=== PATIENT | female | born 1950 | race Caucasian/White ===

== ENCOUNTER 2019-09-10 05:24 | Day surgery (SDC) | payer MEDICARE, SELFPAY ==
--- NOTE | 2019-08-22 09:53 | HP_ITS ---
Intake Intake Visit Reasons: Discuss EGD DX Acid Reflux [facility] Medical History (Updated 08/22/19 @ 09:51 by Yazan Leonard MD) History of benign gastric tumor (Acute) Hiatal hernia (Acute) GERD (gastroesophageal reflux disease) (Acute) HPI HPI HPI: SAY BIGGS, is a 69 F who presents to the office today for HPI HPI Surgical H&P: Yes HPI: SAY BIGGS, is a 69 F who presents to the office today for surgical consultation regarding escalating reflux symptoms. The patient is referred by Dr. Steele a written copy of my surgical consult and recommendations will return to him. It is of note that previously August 25, 2015 I did a upper endoscopy for her. Few gastric polyps were identified. There appeared to be a tumor in the cardia of the stomach. I am suspicious that it might be a gist tumor. At that time the patient was having discomfort in the left lower quadrant. She carries a history of breast cancer being treated elsewhere. I referred her that and subsequently November 30, 2015 he performed a combined laparoscopic robotic resection of the gastric submucosal mass with intraoperative endoscopy guidance. 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 The patient has not had an upper endoscopy since that time. She is having escalating reflux symptoms. Exam Const General: cooperative, healthy appearing, comfortable, no acute distress Nutritional Appearance: average body habitus Orientation: alert, awake, oriented x3 HENMT Head: normal to inspection Resp Effort & Inspection: normal respiratory effort Auscultation: clear to auscultation bilaterally Cardio Rate: regular rate Rhythm: regular rhythm GI Palpation: soft, no hepatosplenomegaly Auscultation: normal bowel sounds Skin General: no rashes or lesions noted Neuro Cognition: normal cognition Extrem General: no calf tenderness bilaterally Psych Affect: normal affect Assessment & Plan Problems 1. Gastroesophageal reflux disease, esophagitis presence not specified K21.9 2. Hiatal hernia K44.9 3. History of benign gastric tumor Z86.018 Plan 69-year-old female. 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 She is having escalating GERD symptoms. She had previous evidence of a 2 cm hiatal hernia. I am recommending to her a esophagogastroduodenoscopy with anticipated biopsy of indicated possible polypectomy. She is aware of the technique, benefits, risks, alternatives. She has had an opportunity to ask and have questions answered. We will schedule procedure at her discretion. I appreciate the opportunity of continue to assist with her surgical care. CC: Dr. Julius Leonard M.D., F.A.C.S. 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 There are no clinical changes since date of exam.
[2019-08-22 09:56] VITALS: BMI 22.4
--- NOTE | 2019-09-09 06:30 | GASB_PTH ---
PATIENT: SAY BIGGS LOC: [facility] U#:[id number] AGE/SX: 69/F ROOM: RE09/10/[address]: Dr. Yazan Leonard MD : 1950 BED: DIS: 09/10/2019 SPEC #: [id number] RECD: 09/09/19 07:10 STATUS: ELHAM WILLY #: [id number] ALESSIA: 09/09/19 06:[address]: Yazan Leonard DEPT: SURGICAL PATHOLOGY RECD BY: Irish Melton ENTERED: 09/10/19 11:00 SP TYPE: Gastric Bx OTHR DR: Dr. Julius Steele MD Tissues: A - Duodenum, NOS B - Gastric mucous membrane C - Gastric mucous membrane D - Gastric mucous membrane E - Esophagus, NOS Procedures: Surgery Specimen Level IV HEADER OPERATION: EGD MOD PRE-OP DIAGNOSIS: GERD, hiatal hernia, history benign gastric tumor TISSUE SUBMITTED: A. Duodenum biopsy, B. Antrum biopsy, C. Fundus biopsy, D. Gastric polyp biopsy, E. Distal esophagus biopsy MICROSCOPIC DIAGNOSIS A. Duodenum, biopsy: No pathologic change. B. Gastric antrum, biopsy: Chronic gastritis. C. Gastric fundus, biopsy: Mild chronic inflammation. D. Gastric polyp, biopsy: Consistent with fundic gland polyp. E. Distal esophagus, biopsy: Consistent with reflux esophagitis. Gastroesophageal junction mucosa with chronic inflammation. 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 No evidence of dysplasia. AM:rhona 09/11/19 COMMENT Alcian blue/PAS stain with matched control supports the above diagnosis. Immunohistochemistry ([id number]) supports the above diagnosis. MICROSCOPIC DESCRIPTION Slides are reviewed. GROSS DESCRIPTION A. Received is one container labeled with the patient name and designated duodenum biopsy. The specimen consists of one irregular fragment of light mancia soft tissue that measures 0.3 x 0.3 x 0.1 cm. The specimen is totally submitted in one cassette. B. Received is one container labeled with the patient name and designated antrum biopsy. The specimen consists of one irregular fragment of light mancia soft tissue that measures 0.6 x 0.2 x 0.1 cm. The specimen is totally submitted in one cassette. C. Received is one container labeled with the patient name and designated fundus biopsy. The specimen consists of one irregular fragment of light mancia soft tissue that measures 0.6 x 0.2 x 0.1 cm. The specimen is totally submitted in one cassette. D. Received is one container labeled with the patient name and designated gastric polyp. The specimen consists of one irregular fragment of light mancia soft tissue that measures 0.2 x 0.2 x 0.1 cm. The specimen is totally submitted in one cassette. E. Received is one container labeled with the patient name and designated distal esophagus biopsy. The specimen consists of two irregular fragments of light mancia soft tissue that in aggregate measure 0.5 x 0.3 x 0.1 cm. The specimen is totally submitted in one cassette. AM:rhona 09/10/19 TC:3 CPT: 00966 x5, 78402 x1
[2019-09-10] VITALS (10 sets, daily range): BP systolic 106–157; BP diastolic 54–90; PULSE 51–63; RESP 16–18; TEMP 36.6; O2SAT 94–100; BMI 22.7
--- NOTE | 2019-09-10 | IMM_PTH ---
PATIENT: SAY BIGGS LOC: EN U#:[id number] AGE/SX: 69/F ROOM: RE09/10/[address]: Dr. Yazan Leonard MD : 1950 BED: DIS: 09/10/2019 SPEC #: [id number] RECD: 09/10/19 14:55 STATUS: ELHAM REAbhishek #: [id number] ALESSIA: 09/10/19 00:[address]: Yazan Leonard DEPT: IMMUNOHISTOCHEMISTRY RECD BY: Irish Melton ENTERED: 09/10/19 14:56 SP TYPE: IMMUNO OTHR DR: Dr. Julius Steele MD Tissues: B - Gastric mucous membrane E - Esophagus, NOS Procedures: H Pylori (initial) P53 (initial) KI-67 (add) CDX2 (add) PHYSICIAN & INSTITUTION [place] [id number] SPECIMEN INFORMATION: Tissue Source: B - Antrum biopsy, E - Distal esophagus biopsy: Clinical Info: GERD, hiatal hernia, history benign gastric tumor Specimen Number: [id number] B & E CPT code: 39508 x2, 61669 x2 METHODOLOGY: Deparaffinized sections of prefer/formalin-fixed tissue or PAP/DQ stained slides are incubated with monoclonal/polyclonal antibodies/oligonucleotide probes. Localization is made via biotin free immunoperoxidase method. Appropriate controls are performed and reacted as expected. Results on target cell population are indicated in the following table: RESULTS: ANTIBODY / CLONE RESULT Block B H Pylori (polyclonal) negative Block E P53 (DO-7) negative Ki-67 (30-9) positive CDX2 ([id number]) positive These tests were developed and their performance characteristics determined by [facility]. They may not have been cleared or approved by the U.S. Food and Drug Administration. The FDA has determined that such clearance or approval is not necessary. The above immunohistochemical/dualISH markers are ordered and reviewed by the Pathologist. INTERPRETATION: B. Gastric antrum, biopsy: Negative for Helicobacter pylori organisms. E. Distal esophagus, biopsy: No evidence of dysplasia. AM:kimber 09/12/19
[2019-09-10] MEDS: Lactated Ringers 1,000 ML 100 ML IV (06:14)
--- NOTE | 2019-09-10 06:50 | OP.EGD_ITS ---
Patient Name: Kimberly Holcomb Procedure Date: 09/10/2019 6:12 AM Date of : 1950 Age: 69 Procedure: Upper GI endoscopy Indications: Suspected esophageal reflux Providers: Yazan Leonard MD Referring MD: Julius Steele Medicines: Midazolam 3 mg IV, Meperidine 75 mg IV Complications: No immediate complications. Procedure: Pre-Anesthesia Assessment: - Prior to the procedure, a History and Physical was performed, and patient medications and allergies were reviewed. The patient's tolerance of previous anesthesia was also reviewed. The risks and benefits of the procedure and the sedation options and risks were discussed with the patient. All questions were answered, and informed consent was obtained. Prior Anticoagulants: The patient has taken no previous anticoagulant or antiplatelet agents. ASA Grade Assessment: II - A patient with mild systemic disease. After reviewing the risks and benefits, the patient was deemed in satisfactory condition to undergo the procedure. After obtaining informed consent, the endoscope was passed under direct vision. Throughout the procedure, the patient's blood pressure, pulse, and oxygen saturations were monitored continuously. The gastroscope was introduced through the mouth, and advanced to the second part of duodenum. The upper GI endoscopy was accomplished without difficulty. The patient tolerated the procedure well. Moderate Sedation: Moderate (conscious) sedation was personally administered by the endoscopist. The following parameters were monitored: oxygen saturation, heart rate, blood pressure, and response to care. Total physician intraservice time was 15 minutes. Scope In: 6:33:37 AM Scope Out: 6:41:38 AM Total Procedure Duration Time 0 hours 8 minutes 1 second Findings: LA Grade A (one or more mucosal breaks less than 5 mm, not extending between tops of 2 mucosal folds) esophagitis with no bleeding was found 40 cm from the incisors. Biopsies were taken with a cold forceps for histology. A small hiatal hernia was present. The Z-line was irregular and was found 40 cm from the incisors. A few sessile polyps with no bleeding and no stigmata of recent bleeding were found in the gastric fundus. The polyp was removed with a cold biopsy forceps. Resection and retrieval were complete. Diffuse mildly erythematous mucosa without bleeding was found in the gastric antrum. Biopsies were taken with a cold forceps for histology. Localized mildly erythematous mucosa without bleeding was found in the gastric fundus. Biopsies were taken with a cold forceps for histology. Diffuse mildly erythematous mucosa without active bleeding and with no stigmata of bleeding was found in the duodenal bulb. Biopsies were taken with a cold forceps for histology. Impression: - LA Grade A reflux esophagitis. Biopsied. - Small hiatal hernia. - Z-line irregular, 40 cm from the incisors. - A few gastric polyps. Resected and retrieved. - Erythematous mucosa in the antrum. Biopsied. - Erythematous mucosa in the gastric fundus. Biopsied. - Erythematous duodenopathy. Biopsied. Recommendation: - Discharge patient to home. - Resume previous diet. - Continue present medications. - Return to my office in 1 week. - Use Prilosec (omeprazole) 40 mg PO daily. Procedure Code(s): --- Professional --- 69038, Esophagogastroduodenoscopy, flexible, transoral; with biopsy, single or multiple 52941, 59, Moderate sedation services provided by the same physician or other qualified health care management coordinator performing the diagnostic or therapeutic service that the sedation supports, requiring the presence of an independent trained observer to assist in the monitoring of the patient's level of consciousness and physiological status; initial 15 minutes of intraservice time, patient age 5 years or older Diagnosis Code(s): --- Professional --- K21.0, Gastro-esophageal reflux disease with esophagitis K44.9, Diaphragmatic hernia without obstruction or gangrene K22.8, Other specified diseases of esophagus K31.7, Polyp of stomach and duodenum K31.89, Other diseases of stomach and duodenum CPT copyright 2017 [employer]. All rights reserved. The codes documented in this report are preliminary and upon communications maintainer review may be revised to meet current compliance requirements. Yazan Leonard MD 09/10/2019 6:49:49 AM This report has been signed electronically. Number of Addenda: 0 Note Initiated On: 09/10/2019 6:12 AM
== END 2019-09-10 07:47 | disposition home or self-care (01) ==
LOC: EN 05:25 → AC 05:26
PROVIDERS: Family Provider Family Medicine; PCP Family Medicine; Referring Provider Family Medicine; Visit Provider Surgery
PROC: (CPT 43239; principal; 2019-09-10 06:25)
DX: K29.50 Unspecified chronic gastritis without bleeding (principal); K44.9 Diaphragmatic hernia without obstruction or gangrene; K21.0 Gastro-esophageal reflux disease with esophagitis; K31.7 Polyp of stomach and duodenum; K22.8 Other specified diseases of esophagus; Z85.3 Personal history of malignant neoplasm of breast
CPT/HCPCS: 43239; 88305; 88341; 88342; 99152; 99153; J7120

== ENCOUNTER 2022-05-25 12:00 | Emergency (ER) | payer MEDICARE, SELFPAY ==
[2022-05-25 12:01] VITALS: BP 134/107; PULSE 56; RESP 18; TEMP 36.3; O2SAT 96; BMI 24.2
--- NOTE | 2022-05-25 12:38 | EKG12_ITS ---
Test Reason : CHEST DISCOMFORT Blood Pressure : / mmHG Vent. Rate : 056 BPM Atrial Rate : 056 BPM P-R Int : 172 ms QRS Dur : 086 ms QT Int : 434 ms P-R-T Axes : 077 049 034 degrees QTc Int : 418 ms Sinus bradycardia Otherwise normal ECG Confirmed by YADIEL ALAS, LILA ([id number]), clinical editor JUNIOR TONG ([id number]) on 05/26/2022 1:26:51 PM Referred By: CARTER Confirmed By:SKYLAR COTTO MD
--- NOTE | 2022-05-25 12:45 | EX.ED.DYSGE1 ---
HPI History of Present Illness Chief Complaint: Allergic Reaction Informant: patient Narrative Narrative: 8-year-old female states that earlier this morning she was bit on the right hand by a wasp. She states that she was stung approximately 1 month ago by unknown organism. She states that as she hike she became itchy and her right hand began to swell and become red. She went to a local [employer] store to buy some Benadryl and while in line and developed a burning central chest pain reminiscent of her GERD. She notes that she has a history of Jacome's esophagus, GERD, as well as a hiatal hernia. She also notes itching of her abdomen. EMS was called and they administered aspirin as well as Benadryl. Patient denies any dyspnea or throat swelling. No change in voice. 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 Breast cancer GERD (gastroesophageal reflux disease) GERD (gastroesophageal reflux disease) Hiatal hernia High cholesterol History of benign gastric tumor Home Medications cholecalciferol (vitamin D3) 50 mcg (2,000 unit) capsule 2,000 unit PO DAILY 08/22/19 [History Last Taken Unknown] rosuvastatin 5 mg tablet 5 mg PO DAILY 08/22/19 [History Last Taken Unknown] omeprazole magnesium 20 mg tablet,delayed release (Prilosec OTC) 20 mg PO DAILY #30 tabs 07/24/20 [Rx Last Taken Unknown] artifi.tears(hypromellose)(PF) 0.3 % eye drops 1 drp ophthalmic (eye) 4-8XD PRN 05/23/22 [History Last Taken Unknown] multivitamin 1 tab PO DAILY 05/23/22 [History Last Taken Unknown] epinephrine 0.3 mg/0.3 mL injection, auto-injector (EpiPen) 0.3 mg (0.3 mL) IM X1 PRN anaphylaxis #2 ea 05/25/22 [Rx Last Taken Unknown] prednisone 20 mg tablet 60 mg PO DAILY #15 TABLETS 05/25/22 [Rx Last Taken Unknown] Allergy/AdvReac Type Severity Reaction Status Date / Time Sulfa (Sulfonamide Allergy Mild Unknown Verified 05/25/22 12:05 Antibiotics) cefadroxil [From [facility]] Allergy Rash Verified 05/25/22 12:05 Family History Mother Breast cancer CVA (cerebral vascular accident) Sister Breast cancer Surgical History History of breast biopsy History of cataract surgery S/P gastric surgery S/P left mastectomy Status post left breast lumpectomy Social History household members: spouse current occupational status: retired Smoking Status: Never smoker alcohol intake: never substance use type: does not use what type of physical activity do you participate in: walking and other details: hiking frequency: 3-4 times per week seatbelt use: always do you feel safe at home: Yes additional social history: - [facility] ED Constitutional Constitutional ED: Denies chills or weight loss Eyes Eyes: Denies change in vision or diplopia ENT ENT ED: Denies ear pain, rhinorrhea or sore throat Cardiovascular Cardiovascular: Reports chest pain; Denies orthopnea, palpitations or racing heartbeat Respiratory/Chest Respiratory/Chest: Denies cough, dyspnea or orthopnea Gastrointestinal Gastrointestinal: Denies abdominal pain, diarrhea, nausea or vomiting Genitourinary Genitourinary ED: Denies dysuria, hematuria or urinary frequency Musculoskeletal Musculoskeletal: Denies arthralgias or myalgias Integumentary Reports rash; Denies abscess Neurologic Neurologic: Denies headache(s) or weakness Psychiatric Psychiatric: Denies anxiety, depression, suicidal ideation or suicidal thoughts Endocrine Endocrinology: Denies polydipsia, polyphagia or polyuria Allergic/Immunologic Allergic/Immunologic ED: Denies mouth swelling, tongue swelling or urticaria EXAM Physical Exam Narrative Exam Narrative: Patient awake alert sitting comfortably in the bed. No acute distress. Const Vital Signs: 05/25/22 12:01 05/25/22 13:41 Temperature 97.4 F L Temperature Source Temporal Pulse Rate 56 L 52 L Respiratory Rate 18 12 Blood Pressure 134/107 H 134/63 H Blood Pressure Mean 116 86 Pulse Ox 96 100 Oxygen Delivery Method Room Air Room Air Positive well nourished and well developed General Appearance ED: well developed HEENT Reports normocephalic, head/scalp atraumatic and moist mucous membranes Eyes PERRL and EOMs intact bilaterally Neck no lymphadenopathy, supple and no JVD Resp normal respiratory effort and clear to auscultation bilaterally Cardio regular rate, regular rhythm and no murmurs GI normal to inspection, nondistended, normoactive bowel sounds and non-tender Palpation: soft Back/Spine no CVA tenderness and normal ROM Extremity Extremity Narrative: The right hand and wrist is erythematous with swelling. Neurovascularly intact. Neuro oriented x3 and CN's II-XII intact bilaterally Sensorium / Orientation: alert Motor Exam: strength 5/5 throughout Psych mental status grossly normal Mood & Affect: Negative for depressed or tearful Skin no wounds Skin Narrative: The patient has hives on her torso. MDM MDM MDM Narrative Medical decision making narrative: Patient received Benadryl by EMS. We administered Solu-Medrol and Pepcid. Her EKG is a sinus bradycardia. Troponin is negative. Patient on repeat examination feels improved. No further chest pain. Her hives have resolved. She will be discharged home with prescription for prednisone and EpiPen. Would recommend Pepcid and Benadryl as needed. Lab Data Attestation: I reviewed the patient's lab results. Labs: Laboratory Results - last 24 hr 05/25/22 05/25/22 12:45 12:45 WBC 7.3 RBC 4.33 Hgb 12.3 Hct 36.8 L MCV 85.0 MCH 28.4 MCHC 33.4 RDW Std Deviation 49.7 H RDW Coeff of Abdirashid 15.8 H Plt Count 182 MPV 10.1 Immature Gran % (Auto) 0.100 Neut % (Auto) 82.2 H Lymph % (Auto) 11.9 L [place] % (Auto) 5.3 Eos % (Auto) 0.4 Baso % (Auto) 0.1 Absolute Neuts (auto) 6.0 Absolute Lymphs (auto) 0.87 Nucleated RBC % 0 Sodium 142 Potassium 3.9 Chloride 111 H Carbon Dioxide 26.0 Anion Gap 5 BUN 17 Creatinine 0.72 Estim Creat Clear Calc 50.91 Est GFR (MDRD) Af Amer 102 Est GFR (MDRD) Non-Af 84 BUN/Creatinine Ratio 23.5 H Glucose 93 Calcium 8.6 Troponin I High Sens 7 EKG Initial EKG: Attestation: I personally reviewed and interpreted this EKG as follows: Comments: Sinus bradycardia with a ventricular rate of 56 bpm Discharge Plan Triage Chief Complaint: Allergic Reaction ED Provider: Juan Francisco Graham Dx/Rx/DC Orders Clinical Impression: Acute allergic reaction, GERD (gastroesophageal reflux disease) Instructions: ED BEE STING General Allergic Rxn Prescriptions: New prednisone 20 mg tablet 60 mg PO DAILY Qty: 15 0RF epinephrine [EpiPen] 0.3 mg/0.3 mL auto-injector 0.3 mg IM X1 PRN (Reason: anaphylaxis) Qty: 2 0RF No Action rosuvastatin 5 mg tablet 5 mg PO DAILY cholecalciferol (vitamin D3) 2,000 unit capsule 2,000 unit PO DAILY multivitamin Tablet 1 tab PO DAILY artifi.tears(hypromellose)(PF) 0.3 % drops 1 drp ophthalmic (eye) 4-8XD PRN omeprazole magnesium [Prilosec OTC] 20 mg tablet,delayed release (DR/EC) 20 mg PO DAILY Qty: 30 0RF Primary Care Provider: Julius Steele Referrals: Julius Steele MD [Primary Care Provider] - As Needed Disposition Disposition: Home, Self Care
[2022-05-25] MEDS: MethylPREDNISolone 125 MG/2 ML Vial IV (12:51)
[2022-05-25] MEDS: Famotidine 20 MG Tablet 40 MG PO (12:51)
[2022-05-25 12:52] LABS: Absolute Lymphocyte Count 0.87 X10^3/uL (0.83-4.51); Basophil# 0.01 X10^3/uL; Basophil% 0.1 % (0-1); Eosinophil# 0.03 X10^3/uL; Eosinophils% 0.4 % (0-5); Hematocrit 36.8 % (37-47); Hemoglobin 12.3 g/dL (12.0-15.0); Lymphocyte # 0.87 X10^3/ul (0.83-4.51); Lymphocyte % 11.9 % (19-41); Mean Corp Hgb Conc 33.4 g/dL (32-36); Mean Corpuscular Hgb 28.4 pg (27.0-32.0); Mean Platelet Vol. 10.1 fl (6.2-12.0); Monocyte# 0.39 X10^3/uL; Monocyte% 5.3 % (0-10); NRBC Flagged by Analyzer 0 % (0-5); Neutrophil # 6.01 X10^3/uL (2.7-7.7); Neutrophil % 82.2 % (47-70); Platelet Count 182 K/mm3 (150-450); RBC Distribution Width CV 15.8 % (11.6-14.6); RBC Distribution Width SD 49.7 fl (35.1-43.9); Red Blood Count 4.33 M/mm3 (4.2-5.4); White Blood Count 7.3 K/mm3 (4.4-11.0)
[2022-05-25 13:09] LABS: Anion Gap 5 (5-15); BUN 17 mg/dL (7-18); BUN/Creat Ratio 23.5 RATIO (10-20); Calcium,Total 8.6 mg/dL (8.5-10.1); Chloride 111 mmol/L (98-107); Creatinine, Serum 0.72 mg/dL (0.55-1.02); EST Glomerular Filtration Rate 84 mL/min (>60); Est Glom Filt Rate - Afr Amer 102 mL/min (>60); Estimated Creatinine Clearance 50.91 ml/min; Glucose 93 mg/dL (74-106); Potassium 3.9 mmol/L (3.5-5.1); Sodium Level 142 mmol/L (136-145); Troponin-I HS 7 pg/mL (3.0-54.0)
[2022-05-25 13:41] VITALS: BP 134/63; PULSE 52; RESP 12; O2SAT 100
== END 2022-05-25 14:32 | disposition home or self-care (01) ==
PROVIDERS: Emergency Provider Emergency Medicine; PCP Family Medicine; Visit Provider Emergency Medicine
DX: T78.40XA Allergy, unspecified, initial encounter (principal); K21.9 Gastro-esophageal reflux disease without esophagitis; X58.XXXA Exposure to other specified factors, initial encounter
CPT/HCPCS: 80048; 84484; 85025; 93005; 96374; 99285; A4216

== ENCOUNTER → 2022-11-30 | Outpatient (CLI) | payer MEDICARE, SELFPAY ==
--- NOTE | 2022-11-30 14:10 | ECHOD_ITS ---
Reason For Study: PALPITATIONS Procedure This was a 2D Doppler, Color Flow transthoracic echocardiogram. Myocardial strain analysis was performed in this exam to aid in the assessment of cardiac function. Exam performed in department. Left Ventricle Normal LV size. Left ventricular systolic function is normal. The estimated ejection fraction is 60 %. No regional wall motion abnormalities noted. Right Ventricle Normal RV size. Normal systolic function. Atria Normal left atrium. Normal right atrium. Mitral Valve Normal mitral valve. Tricuspid Valve Normal tricuspid valve. Aortic Valve Trisinus/trileaflet aortic valve. Pulmonic Valve Normal pulmonic valve. Great Vessels Normal aortic root. The pulmonary artery is normal size. Normal inferior vena cava. Pericardium/Pleural No pericardial effusion. MMode/2D Measurements & Calculations LVIDd: 4.5 cm IVSd: 1.0 cm LAV(MOD-sp4): 42.4 ml LVIDs: 3.5 cm LVPWd: 0.74 cm RVDd: 3.5 cm FS: 22.3 % LVAd ap4: 27.3 cm2 SV(MOD-sp4): 54.1 ml SV(sp4-el): 56.4 ml LVLd ap4: 7.6 cm EDV(MOD-sp4): 80.6 ml EDV(sp4-el): 83.8 ml LVAs ap4: 13.7 cm2 LVLs ap4: 5.8 cm ESV(MOD-sp4): 26.5 ml ESV(sp4-el): 27.4 ml EF(MOD-sp4): 67.2 % EF(sp4-el): 67.3 % LA A4 area: 15.5 cm2 LA dimension(2D): 3.7 cm RA A4 area: 14.5 cm2 Time Measurements MV dec time: 0.19 sec Doppler Measurements & Calculations MV E max ovidio: 70.7 cm/sec MV V2 max: 78.7 cm/sec MV A max ovidio: 58.2 cm/sec MV max P.5 mmHg MV dec slope: 371.4 cm/sec2 MV E/A: 1.2 MV V2 mean: 48.8 cm/sec MV mean P.1 mmHg MV V2 VTI: 31.7 cm Ao V2 max: 128.9 cm/sec LV V1 max: 100.1 cm/sec PA V2 max: 84.0 cm/sec Ao max P.7 mmHg LV V1 max P.0 mmHg PA V2 mean: 58.7 cm/sec Ao V2 mean: 88.3 cm/sec LV V1 mean P.2 mmHg Ao mean P.6 mmHg LV V1 mean: 69.0 cm/sec Ao V2 VTI: 34.5 cm LV V1 VTI: 26.7 cm AV (velocity ratio): 0.77 ECHO/Echo Complete Interpretation Summary Normal LV size. Left ventricular systolic function is normal. The estimated ejection fraction is 60 %. The global longitudinal strain is normal. The global longitudinal strain = -20. 9 % (normal). Structurally normal valves. Ordering Physician: Julius Steele Referring Physician: Julius Steele Performed By: Samantah Hardy RCS
== END | disposition home or self-care (01) ==
LOC: CVS 14:07
PROVIDERS: PCP Family Medicine; Visit Provider Family Medicine
DX: R00.2 Palpitations (principal)
CPT/HCPCS: 93306

== ENCOUNTER → 2023-06-29 | Outpatient (CLI) | payer MEDICARE, SELFPAY ==
--- NOTE | 2023-06-29 13:00 | MRI_ITS ---
STUDY: MRI ORBITS WITH AND WITHOUT CONTRAST REASON FOR EXAM: Female, 73 years old. EXOPHTHALMOS -- 0RBITS, Lt eye bulges out further that Rt. Lt eye is cloudy, LT eye has some pain and more light sensitive, cataract surgery 2020 TECHNIQUE: Standardized fat and water weighted pulse sequences were obtained in all 3 orthogonal planes, pre-and post contrast administration. Clariscan 13ml was administered for the contrast portion of the examination. COMPARISON: None. FINDINGS: There is a globular appearance to both optic globes demonstrating exophthalmos slightly worse on the left. There are postsurgical changes status post bilateral cataract extraction.. Normal bilateral optic nerve sheath complexes and optic nerves. Normal bilateral intraconal and extraconal spaces. Normal bilateral extraocular muscles. Normal optic chiasm and post-chiasmatic tracts. Normal sella turcica, pituitary gland, infundibular stalk, and hypothalamus. Normal bilateral cavernous sinuses. Normal tectal plate and pineal gland. Normal flow voids within the major intracranial circulation suggesting patency by spin echo criteria. Normal size of the ventricles and extra-axial spaces for the patient''s age. Normal white matter tracts of the supratentorial brain. Normal bilateral basal ganglia. Normal thalami. There is no extra-axial fluid accumulation. Normal midbrain, kurt and medulla. Normal cerebellum. Normal basal cisterns. MRI/Orbit Face Neck W/WO Contrast IMPRESSION: Nonspecific exophthalmos status post bilateral cataract extraction. No focal intraorbital masses. Other findings as above Electronically Signed: Juan Bolivar MD at 20:47 EDT ,
--- NOTE | 2023-06-29 14:27 | RAD_ITS ---
INDICATION: PAIN -- -- INCREASING RT SHOULDER PAIN, NKI, DIFFICULTY RAISING ARM, FEELS POPPING AN CRACKING EXAMINATION/TECHNIQUE: X-RAY - RIGHT XR Shoulder 4 VIEWS COMPARISON: FINDINGS: SOFT TISSUES: No soft tissue swelling or gas. No radiopaque foreign body. BONES/JOINTS: No acute fracture or subluxation.. Normal alignment. Preservation of the joint space.. No sclerotic or destructive changes observed. RAD/Shoulder min 2 Views IMPRESSION: Negative. Electronically Signed: Juan Manuel Marquez DO at 16:28 EDT ,
== END | disposition home or self-care (01) ==
LOC: MRI 12:39
PROVIDERS: PCP Family Medicine; Referring Provider Family Medicine; Visit Provider Family Medicine
DX: M25.511 Pain in right shoulder (principal); H05.20 Unspecified exophthalmos
CPT/HCPCS: 70543; 73030; A9575

== ENCOUNTER → 2024-05-27 | Outpatient (CLI) | payer MEDICARE, SELFPAY ==
[2024-05-27 12:15] LABS: Absolute Lymphocyte Count 1.05 X10^3/uL (0.83-4.51); Absolute Neutrophil Count 2.5 X10^3/uL (2.0-7.7); Basophil# 0.03 X10^3/uL; Basophil% 0.7 % (0-1); Eosinophil# 0.09 X10^3/uL; Eosinophils% 2.2 % (0-5); Hematocrit 41.3 % (37-47); Hemoglobin 13.2 g/dL (12.0-15.0); Lymphocyte # 1.05 X10^3/ul (0.83-4.51); Lymphocyte % 25.6 % (19-41); Mean Corpuscular Hgb 29.7 pg (27.0-32.0); Mean Platelet Vol. 10.8 fl (6.2-12.0); Monocyte# 0.41 X10^3/uL; NRBC Flagged by Analyzer 0 % (0-5); Neutrophil # 2.51 X10^3/uL (2.7-7.7); Neutrophil % 61.3 % (47-70); Platelet Count 221 K/mm3 (150-450); RBC Distribution Width CV 13.5 % (11.6-14.6); RBC Distribution Width SD 46.5 fl (35.1-43.9); Red Blood Count 4.44 M/mm3 (4.2-5.4); White Blood Count 4.1 K/mm3 (4.4-11.0)
[2024-05-27 12:34] LABS: Vitamin D,25 Hydroxy 44.9 ng/mL
[2024-05-27 13:22] LABS: AST(SGOT) 30 U/L (15-37); Alanine Aminotransfer ALT/SGPT 37 U/L (13-56); Albumin, Serum 3.6 g/dL (3.2-5.0); Alkaline Phosphatase 76 U/L (45-117); Anion Gap 4 (5-15); BUN 13 mg/dL (7-18); BUN/Creat Ratio 16.9 RATIO (10-20); Calcium,Total 9.8 mg/dL (8.5-10.1); Chloride 108 mmol/L (98-107); Cholesterol 160 mg/dL (200); Creatinine, Serum 0.77 mg/dL (0.55-1.02); EST Glomerular Filtration Rate 79 mL/min (>60); Est Glom Filt Rate - Afr Amer 95 mL/min (>60); Globulin 3.6 g/dL (2.2-4.2); Glucose 92 mg/dL (74-106); High Density Lipoprotein 78 mg/dL; Potassium 4.9 mmol/L (3.5-5.1); Protein, Total 7.2 g/dL (6.4-8.2); Sodium Level 142 mmol/L (136-145); Triglycerides 62 mg/dL; Very Low Density Lipoprotein 12 mg/dL (5-40)
== END | disposition home or self-care (01) ==
LOC: BIMLAB 09:57
PROVIDERS: PCP Internal Medicine; Referring Provider Internal Medicine; Visit Provider Internal Medicine
DX: E78.5 Hyperlipidemia, unspecified (principal); E55.9 Vitamin D deficiency, unspecified
CPT/HCPCS: 36415; 80053; 80061; 82306; 85025

== ENCOUNTER 2024-06-24 08:31 | Day surgery (SDC) | payer MEDICARE, SELFPAY ==
--- NOTE | 2024-06-24 | IMM_PTH ---
PATIENT: SAY BIGGS LOC: EN U#:[id number] AGE/SX: 74/F ROOM: RE06/24/[address]: Dr. Oscar Hayden DO : 1950 BED: DIS: 06/24/2024 SPEC #: [id number] RECD: 06/26/24 12:23 STATUS: ELHAM REQ #: [id number] ALESSIA: 06/24/24 00:[address]: Oscar Hayden DEPT: IMMUNOHISTOCHEMISTRY RECD BY: Blayne Breen ENTERED: 06/26/24 12:23 SP TYPE: IMMUNO OT DR: Dr. Michela Cheatham MD Tissues: Esophagus, NOS Procedures: P53 (initial) KI-67 (add) PHYSICIAN & INSTITUTION [place] [address] SPECIMEN INFORMATION: Tissue Source: Distal esophagus Clinical Info: GERD Specimen Number: [id number] CPT code: 26142,06523 METHODOLOGY: Deparaffinized sections of prefer/formalin-fixed tissue or PAP/DQ stained slides are incubated with monoclonal/polyclonal antibodies/oligonucleotide probes. Localization is made via biotin free immunoperoxidase method. Appropriate controls are performed and reacted as expected. Results on target cell population are indicated in the following table: RESULTS: ANTIBODY / CLONE RESULT P53 (DO-7) positive, wild type Ki-67 (30-9) positive, low These tests were developed and their performance characteristics determined by [facility]. They may not have been cleared or approved by the U.S. Food and Drug Administration. The FDA has determined that such clearance or approval is not necessary. The above immunohistochemical/dualISH markers are ordered and reviewed by the Pathologist. INTERPRETATION: Distal esophagus, biopsy: No evidence of dysplasia. AM 06/28/2024
[2024-06-24 08:51] VITALS: BP 154/76; PULSE 57; RESP 16; TEMP 36.5; O2SAT 100; BMI 22.4
--- NOTE | 2024-06-24 08:54 | PCM.PRE.AN2 ---
ASA Classification* ASA Classification ASA Classification: 2 Assessment & Plan Anesthesia* Anesthesia Assessment Anesthesia Assessment: Discussed sedation and/or anesthesia options, risks, benefits, and alternatives with patient/parents/legal guardian/POA. Questions invited. The patient/parents/legal guardian/POA seems to understand and agrees to proceed with anesthesia plan. Reviewed the physical assessment, medical history, allergy history and patient home medications list prior to surgery/procedure/anesthetic and documented any changes. Performed airway and anesthesia risk assessments. Anesthesia Type Anesthesia Type: MAC Anesthesia Focused Assessment* Airway Assessment Mouth opens: >3 cm Mallampati Score: II Focused Labs Anesthesia Preop lab: CBC WBC 4.1 K/mm3 (4.4-11.0) L 05/27/24 09:58 RBC 4.44 M/mm3 (4.2-5.4) 05/27/24 09:58 Hgb 13.2 g/dL (12.0-15.0) 05/27/24 09:58 Hct 41.3 % (37-47) 05/27/24 09:58 Plt Count 221 K/mm3 (150-450) 05/27/24 09:58 CHEMISTRY Potassium 4.9 mmol/L (3.5-5.1) 05/27/24 09:58 Sodium 142 mmol/L (136-145) 05/27/24 09:58 BUN 13 mg/dL (7-18) 05/27/24 09:58 Creatinine 0.77 mg/dL (0.55-1.02) 05/27/24 09:58 Glucose 92 mg/dL (74-106) 05/27/24 09:58 COAG Pre-Assessment Diagnosis/Proposed Procedure Planned Operative Procedure(s): EGD Anesthesia History Anesthesia History - regional coordinator: Anesthesia History - regional coordinator Hx Hospitalization No 06/21/24 08:39 Any Problems With Anesthesia Yes: N,V 06/21/24 08:39 Cholinesterase deficiency No 06/21/24 08:39 You/Your Family Experience No 06/21/24 08:39 fever (hyperthermia) with Relationship Recent Exposure to Contagious No 09/10/19 05:49 Disease Does patient have nerve No 06/21/24 08:39 stimulator Patient instructed to have device shut off --Does patient have Pacemaker or ICD? When Was Last Pacemaker Check QUESTION #4 FULL TEXT: You/Your Family Experience fever (hyperthermia) with Anesthesia Last Oral Intake Last Oral intake: Last Oral Intake NPO since Meds taken in AM with sips of water? Meds patient instructed to take am of surgery PONV PONV - regional coordinator: PONV - regional coordinator Female Yes 06/21/24 08:39 HX of Motion Sickness Yes 06/21/24 08:39 HX of N/V After Surgery Yes 06/21/24 08:39 Non-Smoker Yes 06/21/24 08:39 Duration of Surgery greater No 06/21/24 08:39 than 60 minutes Number of Risk Factors 4 06/21/24 08:39 PONV Score Severe Risk 06/21/24 08:39 Height & Weight Height & Weight: Anesthesia: Height & Weight Height 5 ft 7 in 05/27/24 09:20 Respiratory Assessment Respiratory Assessment - regional coordinator: Respiratory Tract Infection Hx - regional coordinator Hx Respiratory Tract Infection No 06/21/24 08:39 STOP Sleep Apnea STOP Sleep Apnea - regional coordinator: STOP Sleep Apnea - regional coordinator Hx Hypertension No 06/21/24 08:39 Hx Sleep Apnea No 06/21/24 08:39 CPAP BIPAP Do you snore loudly (louder No 06/21/24 08:39 than talking or can be heard Do you often feel tired/ No 06/21/24 08:39 fatigued/ sleepy during daytime? Has anyone observed you stop No 06/21/24 08:39 breathing during sleep? STOP Results Negative 06/21/24 08:39 QUESTION #5 FULL TEXT : Do you snore loudly (louder than talking or can be heard through closed doors)? Tobacco Use History Tobacco Use History - regional coordinator: Tobacco Use History - regional coordinator Tobacco Use Smoking Status Never smoker 06/21/24 08:39 Hx Tobacco Use No 06/21/24 08:39 Years Smoking Packs Smoked per Day Smoking Cessation Date was within the last 15 years Hx Smoking Cessation Date Hx Smoking Cessation Counseling Hematologic Medial History Hematologic Hx - regional coordinator: Hematologic Medical Hx - social science teacher Hx of Blood Transfusion No 06/21/24 08:39 Hx of Transfusion in last 3 No 06/21/24 08:39 Months Date of Last Transfusion (if within last 3 months) Ever experience any problems No 06/21/24 08:39 with transfusion(s)? Specify any problems Hx of Preganancy in last 3 No 06/21/24 08:39 Months Nurse Filling Out Transfusion DSCHRIBER 06/21/24 08:39 & Questions: Date: 06/21/24 06/21/24 08:39 Time: 08:42 06/21/24 08:39 Patient unable to answer at this time (ie. confused, unrespo /Reproduction History /Reproductive History - regional coordinator: /Reproductive Hx- regional coordinator Hx Now No 06/21/24 08:39 Gestational Age (in weeks): EDC: Hx Hx Para Hx Section SAB No 06/21/24 08:39 Active Medications Active Medications: Current Medications Generic Name Dose Route Start Last Admin Trade Name Freq PRN Reason Stop Dose Admin Lactated Ringer's 1,000 mls @ 15 mls/hr 06/24/24 08:45 IV .Q48H [facility] Medical History (Updated 06/21/24 @ 08:51 by Krystal Hightower) Post-menopausal Cancer Anxiety Arthritis Back pain Syncope History of hiatal hernia Leg cramps Non-smoker History of echocardiogram History of palpitations Health care maintenance Hyperlipidemia Jacome's esophagus determined by biopsy High cholesterol GERD (gastroesophageal reflux disease) History of benign gastric tumor Hiatal hernia GERD (gastroesophageal reflux disease) Home Medications ?Medication ?Instructions ?Recorded ?Last Taken ?Type cholecalciferol (vitamin D3) 50 2,000 unit PO DAILY 08/22/19 Unknown History mcg (2,000 unit) capsule rosuvastatin 5 mg tablet 5 mg PO DAILY 08/22/19 Unknown History artifi.tears(hypromellose)(PF) 0.3 1 drp ophthalmic (eye) 4-8XD PRN 05/23/22 Unknown History % eye drops dry eye(s) multivitamin 1 tab PO DAILY 05/23/22 Unknown History latanoprost 0.005 % eye drops 1 drp ophthalmic (eye) QHS to 05/27/24 Unknown History lower eye pressure omeprazole 40 mg capsule,delayed 40 mg PO DAILY #90 caps 05/27/24 06/24/24 Rx release epinephrine 0.3 mg/0.3 mL 0.3 mg (0.3 mL) IM X1 PRN 06/06/24 Unknown Rx injection, auto-injector (EpiPen) anaphylaxis #2 ea Allergy/AdvReac Type Severity Reaction Status Date / Time venom-wasp (wasp venom) Allergy Severe Anaphylaxis Verified 06/24/24 08:49 Sulfa (Sulfonamide Allergy Mild Unknown Verified 06/24/24 08:49 Antibiotics) cefadroxil (From Duricef) Allergy Rash Verified 06/24/24 08:49 Family History (Updated 05/27/24 @ 09:16 by Maricel Sahu MA) Mother Breast cancer CVA (cerebral vascular accident) Melanoma Torsion of bowel Sister Breast cancer In situ. Surgical History (Updated 06/21/24 @ 08:51 by Krystal Hightower) History of esophagogastroduodenoscopy (EGD) Hx of right cataract extraction Hx of left cataract extraction History of colonoscopy (08/04/15) History of breast biopsy S/P left mastectomy Status post left breast lumpectomy S/P gastric surgery Social History (Updated 05/27/24 @ 09:20 by Maricel Sahu MA) adopted: No household members: spouse housing: house number of children: 3 current occupational status: retired pets and animals: No Smoking Status: Never smoker alcohol intake: never substance use type: does not use caffeine: No what type of physical activity do you participate in: walking and other details: hiking frequency: 3-4 times per week sandhya/jew: Uatsdin seatbelt use: always do you feel safe at home: Yes additional social history: - Juan Francisco Review of Systems (Anesthesia) ROS Narrative System reviewed and no additional complaints, except as documented.
[2024-06-24 08:56] VITALS: BP 140/88; BP 154/76; PULSE 78; RESP 16; TEMP 36.6; O2SAT 94
[2024-06-24] MEDS: Lactated Ringers 1,000 ML 15 ML IV (09:16)
--- NOTE | 2024-06-24 09:29 | PCM.HP.BLA ---
History and Physical Date of Admission: 06/24/24 LUIS ANTONIO BIGGS, is a 74 F who presents to the office today for establishment with [facility]. She has a hx of breast cancer, stomach mass, HLD, hiatal hernia, and GERD. She had an EGD in [address] Leonard which showed she had Barretts esophagus and she was told to get another EGD in three years. She is here today to be scheduled for an EGD. Since 2019 she has continued on PPI therapy but has concerns about he side effects of fci use. She has occasional heartburn but nothing she cannot manage. She is very active and hikes often. She does have concerns about her low heart rate. She denies abdominal pain, n/v, constipation or diarrhea. Her last colonoscopy was in 2014 without abnormalities. ROS Const Constitutional: No fatigue, fever(s) or weight change ENT ENT: No difficulty swallowing Gastro GI: Positive for heartburn; No abdominal pain, belching, bloating, change in bowel habits, change in stool character, coffee ground emesis, constipation, cramping, diarrhea, difficulty swallowing, feeling full early, excessive flatus, incontinent of stools, Vomiting blood/hematemesis, Blood in stool, loose stools, Black,tarry stools, nausea/dyspepsia, pain with swallowing, vomiting or other Musc Musculoskeletal: No joint pain Skin Skin: No yellowing of the eye or itchy eyes Psych Psychiatric: No anxiety and No depression Endo Endocrine: No fatigue or weight change Aller/Imm Allergy/Immunologic: No itchy eyes [place]/Lymp Hematologic/Lymphatic: No easy bleeding or easy bruising Exam Const General: cooperative and comfortable Nutritional Appearance: average body habitus and well nourished [facility] Head: normal to inspection Ears: hearing grossly normal bilaterally Nose: external nose normal Face and sinus: normal facial exam and ecchymosis Eyes General: appearance normal, both eyes and all related structures Neck Neck: normal visual inspection Chest Chest palpation & inspection: normal inspection of the chest Resp Effort & Inspection: normal respiratory effort and able to speak in complete sentences GI Inspection: normal to inspection Skin General: no rashes or lesions noted Neuro General: patient alert Extrem General: normal to inspection Psych Affect: normal affect Assessment and Plan Assessment and Plan (1) GERD (gastroesophageal reflux disease): Status: Chronic Qualifiers: Esophagitis presence: esophagitis presence not specified Qualified Code(s): K21.9 - Gastro-esophageal reflux disease without esophagitis Plan: Pt is a74 yo female with PMHx of breast cancer, stomach tumor, Barrretts esophagus and hiatal hernia. SHe is here today to establish care and schedule for an EGD. Her last EGD was in 2019 and biopsy showed Barretts. She has been on PPI therapy since. She denies heartburn or any other GI symptoms. She has concerns about long term care social worker use of PPI therapy. I explained that we worry about osteoporosis in women. She tells me her DEXA scans have all been normal and she takes vitamin D. She will continue PPI therapy and be scheduled for EGD. Her last colonoscopy was in 2014. I recommended she get another colonoscopy now since she is almost due. She will consider this. -EGD -Continue PPI -f/u in 6 months (2) Jacome's esophagus determined by biopsy: Status: Chronic Coding Level of Care Code Off vis,new,level 4 Diagnoses Gastroesophageal reflux disease, esophagitis presence not specified K21.9 Esophagitis presence: esophagitis presence not specified Jacome's esophagus determined by biopsy K22.70 I have examined the patient and the H&P has been reviewed. There are no clinical changes since date of exam.
--- NOTE | 2024-06-24 09:30 | EGD_PTH ---
PATIENT: SAY BIGGS LOC: EN U#:[id number] AGE/SX: 74/F ROOM: RE06/24/[address]: Dr. Oscar Hayden DO : 1950 BED: DIS: 06/24/2024 SPEC #: [id number] RECD: 06/25/24 08:52 STATUS: ELHAM WILLY #: [id number] ALESSIA: 06/24/24 09:[address]: Oscar Hayden DEPT: SURGICAL PATHOLOGY RECD BY: Irish Melton ENTERED: 06/25/24 10:36 SP TYPE: EGD BIOPSY KIRSTIN DR: Dr. Michela Cheatham MD Tissues: Esophagus, NOS Procedures: Special Stain Group I Surgery Specimen Level IV Alcian Blue/PAS (control) HEADER OPERATION: EGD PRE-OP DIAGNOSIS: GERD TISSUE SUBMITTED: Distal esophagus MICROSCOPIC DIAGNOSIS Distal esophagus, biopsy: Gastroesophageal junctional biopsy with mild chronic inflammation. Focal goblet cell metaplasia consistent with Jacome's esophagus. No evidence of dysplasia. See comment. 06/26/2024 COMMENT Alcian blue/PAS stain with matched control is used in the evaluation of the specimen. Immunohistochemistry ([id number]) for P53 and Ki-67 will be performed and results will be reported separately. MICROSCOPIC DESCRIPTION Slides are reviewed. GROSS DESCRIPTION Received in fixative is one container labeled with the patient's name and designated Distal esophagus biopsy. The specimen consists of multiple irregular fragments of light mancia soft tissue that in aggregate measure 1.5 x 0.5 x 0.1 cm. The specimen is totally submitted in one cassette. JOSECirilo 06/25/2024 TC:3 CPT:84715,69506
--- NOTE | 2024-06-24 09:58 | OP.EGD_ITS ---
Patient Name: Kimberly Holcomb Procedure Date: 06/24/2024 9:34 AM Date of : 1950 Age: 74 Procedure: Upper GI endoscopy Indications: Follow-up of Jacome's esophagus Providers: Oscar Hayden DO Medicines: Monitored Anesthesia Care Patient Profile: This is a 74 year old female. Refer to note in patient chart for documentation of history and physical. Patient has symptoms of chronic heartburn. Her most recent EGD for Jacome's biopsy was three years ago. Complications: No immediate complications. Procedure: Pre-Anesthesia Assessment: - Prior to the procedure, a History and Physical was performed, and patient medications and allergies were reviewed. The patient is competent. The risks and benefits of the procedure and the sedation options and risks were discussed with the patient. All questions were answered and informed consent was obtained. Patient identification and proposed procedure were verified by the physician in the pre-procedure area. Mental Status Examination: alert and oriented. Airway Examination: normal oropharyngeal airway and neck mobility. Respiratory Examination: clear to auscultation. CV Examination: normal. Prophylactic Antibiotics: The patient does not require prophylactic antibiotics. Prior Anticoagulants: The patient has taken no anticoagulant or antiplatelet agents except for NSAID medication. ASA Grade Assessment: II - A patient with mild systemic disease. After reviewing the risks and benefits, the patient was deemed in satisfactory condition to undergo the procedure. The anesthesia plan was to use monitored anesthesia care (MAC). Immediately prior to administration of medications, the patient was re-assessed for adequacy to receive sedatives. The heart rate, respiratory rate, oxygen saturations, blood pressure, adequacy of pulmonary ventilation, and response to care were monitored throughout the procedure. The physical status of the patient was re-assessed after the procedure. After obtaining informed consent, the endoscope was passed under direct vision. Throughout the procedure, the patient's blood pressure, pulse, and oxygen saturations were monitored continuously. The Endoscope was introduced through the mouth, and advanced to the second part of duodenum. The upper GI endoscopy was accomplished without difficulty. The patient tolerated the procedure well. Scope In: 9:50:07 AM Scope Out: 9:53:30 AM Total Procedure Duration Time 0 hours 3 minutes 23 seconds Findings: There were esophageal mucosal changes secondary to established short-segment Jacome's disease present in the lower third of the esophagus. The maximum longitudinal extent of these mucosal changes was 2 cm in length. Mucosa was biopsied with a cold forceps for histology in a targeted manner at intervals of 1 cm in the lower third of the esophagus. One specimen bottle was sent to pathology. Biopsies were taken with a cold forceps for histology. A small hiatal hernia was present. Multiple 5 mm hyperplastic polyps with no bleeding and no stigmata of recent bleeding were found in the gastric body. No gross lesions were noted in the first portion of the duodenum. Impression: - Esophageal mucosal changes secondary to established short-segment Jacome's disease. Biopsied. - Small hiatal hernia. - Multiple gastric polyps. - No gross lesions in the first portion of the duodenum. Recommendation: - Await pathology results. - Repeat upper endoscopy in 1 year for surveillance. - Return to GI clinic in 1 week. - Continue present medications. Procedure Code(s): --- Professional --- 25957, Esophagogastroduodenoscopy, flexible, transoral; with biopsy, single or multiple CPT copyright 2021 [employer]. All rights reserved. The codes documented in this report are preliminary and upon greens cutter review may be revised to meet current compliance requirements. Oscar Hayden DO 06/24/2024 9:58:04 AM This report has been signed electronically. Number of Addenda: 0 Note Initiated On: 06/24/2024 9:34 AM
--- NOTE | 2024-06-24 09:58 | OP.CCLET_ITS ---
06/24/2024 Michela Cheatham MD [address] [place] [address] [place] [address] Re : Upper GI endoscopy procedure for Kimberly Holcomb Dear Dr. Cheatham This procedure was performed on Monday, June 24, 2024. My impressions and recommendations are as follows: Impressions : - Esophageal mucosal changes secondary to established short-segment Jacome's disease. Biopsied. - Small hiatal hernia. - Multiple gastric polyps. - No gross lesions in the first portion of the duodenum. Recommendations : - Await pathology results. - Repeat upper endoscopy in 1 year for surveillance. - Return to GI clinic in 1 week. - Continue present medications. My findings are described in the full procedure note, which is enclosed. If I can be of further assistance, please feel free to contact me at . Sincerely, Oscar Hayden, 06/24/2024 9:58:04 AM This report has been signed electronically.
[2024-06-24 10:00] VITALS: BP 129/73; BP 154/76; PULSE 83; RESP 16; O2SAT 95
--- NOTE | 2024-06-24 10:01 | PCM.POST.ANE ---
Anesthesia: Postop Eval I Current Vital Signs Temperature: 97.8 F Pulse Rate: 82 Blood Pressure: 140/88 Respiratory Rate: 16 Pulse Ox: 95 Oxygen Delivery Method: Room Air Assessment Airway patent: Yes Spontaneous unlabored respirations: Yes Mental status: Asleep nausea: No Vomiting: No Anesthesia Complication: No Fluid Hydration Crystalloid volume administer (ml): 400 Total IV fluid infused: 400 Progress Note Anesthesia document: Postop Eval 1 completed: Yes
[2024-06-24 10:02] VITALS: BP 140/88; PULSE 82; RESP 16; TEMP 36.6; O2SAT 95
[2024-06-24 10:05] VITALS: BP 139/85; BP 154/76; PULSE 67; RESP 16; TEMP 36.4; O2SAT 97
--- NOTE | 2024-06-24 10:18 | PCM.POSTANE2 ---
Anesthesia Postop Eval I Sum Postop Eval Completion status Anesthesia document: Postop Eval 1 completed: Yes Anesthesia Postop Eval I Summary Anesthesia Postop Eval I Summary: Anesthesia Postop Eval I: Assessment Summary Airway patent Yes 06/24/24 10:02 [email or web address] Spontaneous unlabored Yes 06/24/24 10:02 [email or web address] respirations Mental status Asleep 06/24/24 10:02 [email or web address] nausea No 06/24/24 10:02 [email or web address] Vomiting No 06/24/24 10:02 [email or web address] Anesthesia Postop Eval I: Fluid Summary Crystalloid volume administer 400 06/24/24 10:02 [email or web address] (ml) Colloids volume administered ( ml) Blood Product volume administered (ml) Total IV fluid infused 400 06/24/24 10:02 [email or web address] Anesthesia Postop Eval I: Summary Notes Anesthesia Complication No 06/24/24 10:02 [email or web address] Anesthesia Complication Comment: Post-operative progress note Anesthesia: Postop Eval II Evaluation Mental status: Awake and Calm Pain Level: 0 nausea: No Vomiting: No Complications Anesthesia Complication: No
== END 2024-06-24 10:50 | disposition home or self-care (01) ==
PROVIDERS: PCP Internal Medicine; Referring Provider Internal Medicine; Visit Provider Internal Medicine Gastroenterology
PROC: 0DJ08ZZ Inspection of Upper Intestinal Tract, Via Natural or Artificial Opening Endoscopic (ICD-10-PCS; CPT 43235; principal; 2024-06-24 09:25)
DX: K22.70 Barrett's esophagus without dysplasia (principal); K44.9 Diaphragmatic hernia without obstruction or gangrene; K31.7 Polyp of stomach and duodenum; K21.9 Gastro-esophageal reflux disease without esophagitis; E78.00 Pure hypercholesterolemia, unspecified; Z85.3 Personal history of malignant neoplasm of breast; Z79.899 Other long term (current) drug therapy
CPT/HCPCS: 43239; 88305; 88312; 88341; 88342; J7120; J2405

== ENCOUNTER → 2024-11-25 | Outpatient (CLI) | payer MEDICARE, SELFPAY ==
[2024-11-25 16:47] LABS: Vitamin D,25 Hydroxy 56.1 ng/mL
[2024-11-25 19:35] LABS: ALB/GLOB Ratio 1.2 RATIO (0.9-2.4); AST(SGOT) 24 U/L (15-37); Alanine Aminotransfer ALT/SGPT 33 U/L (13-56); Alkaline Phosphatase 81 U/L (45-117); Anion Gap 5 (5-15); BUN 13 mg/dL (7-18); BUN/Creat Ratio 17.1 RATIO (10-20); Calcium,Total 9.4 mg/dL (8.5-10.1); Chloride 107 mmol/L (98-107); Creatinine, Serum 0.76 mg/dL (0.55-1.02); EST Glomerular Filtration Rate 79 mL/min (>60); Est Glom Filt Rate - Afr Amer 96 mL/min (>60); Globulin 3.4 g/dL (2.2-4.2); Glucose 90 mg/dL (74-106); Protein, Total 7.4 g/dL (6.4-8.2); Sodium Level 141 mmol/L (136-145)
== END | disposition home or self-care (01) ==
LOC: BIMLAB 11:31
PROVIDERS: PCP Internal Medicine; Referring Provider Internal Medicine; Visit Provider Internal Medicine
DX: M85.80 Other specified disorders of bone density and structure, unspecified site (principal); E78.5 Hyperlipidemia, unspecified
CPT/HCPCS: 36415; 80053; 82306

== ENCOUNTER → 2025-05-26 | Outpatient (CLI) | payer MEDICARE, SELFPAY ==
[2025-05-26 15:24] LABS: Hematocrit 39.1 % (37-47); Hemoglobin 12.4 g/dL (12.0-15.0); Immature Granulocytes Count 0.010 X10^3/uL (0.0-0.0); Mean Corp Hgb Conc 31.7 g/dL (32-36); Mean Corpuscular Volume 87.7 fL (81-99); Mean Platelet Vol. 10.5 fl (6.2-12.0); NRBC Flagged by Analyzer 0 % (0-5); Platelet Count 238 K/mm3 (150-450); RBC Distribution Width CV 14.6 % (11.6-14.6); RBC Distribution Width SD 47.3 fl (35.1-43.9); Red Blood Count 4.46 M/mm3 (4.2-5.4); White Blood Count 5.3 K/mm3 (4.4-11.0)
[2025-05-26 16:06] LABS: AST(SGOT) 28 U/L (<=31); Alanine Aminotransfer ALT/SGPT 23 U/L (<=34); Albumin, Serum 4.3 g/dL (3.4-4.8); Alkaline Phosphatase 71 U/L (35-104); Anion Gap 12 (5-15); BUN 13 mg/dL (4-19); BUN/Creat Ratio 17.0 RATIO (10-20); Calcium,Total 9.7 mg/dL (7.6-11.0); Carbon Dioxide 26.7 mmol/L (21.0-32.0); Chloride 104 mmol/L (98-108); Cholesterol 156 mg/dL (<=200); Globulin 2.6 g/dL (2.2-4.2); Glucose 84 mg/dL (70-99); Low Density Lipoprotein Calc. 72 mg/dL; Potassium 3.8 mmol/L (3.3-5.1); Triglycerides 64 mg/dL; Very Low Density Lipoprotein 13 mg/dL (5-40); cholesterol:hdl ratio screen 2.20
== END | disposition home or self-care (01) ==
LOC: MTLAB 11:25
PROVIDERS: PCP Internal Medicine; Referring Provider Internal Medicine; Visit Provider Internal Medicine
DX: E78.5 Hyperlipidemia, unspecified (principal)
CPT/HCPCS: 36415; 80053; 80061; 85025